=== PATIENT | male | born 1960 | race Caucasian/White ===

== ENCOUNTER 2016-10-30 16:03 | Emergency (ER) | payer MEDICAID ==
[~2016-10-30] VITALS: Ht 172.7 cm; Wt 76.0 kg
[2016-10-30] MEDS ORDERED: ASPIRIN 81 MG CHEWABLE TABLET PO ONE (17:00)
[2016-10-30] MEDS ORDERED: SODIUM CHLORIDE 0.9% 1,000 ML IV ONE (17:00)
[2016-10-30 17:08] LABS: EOSINOPHILS % (AUTO) 2.1 % (1.0-6.0); HEMATOCRIT 39.4 % (41-53); HEMOGLOBIN 12.8 g/dL (13.5-17.5); LYMPHOCYTES # (AUTO) 1.5 K/uL (1.0-4.8); LYMPHOCYTES % (AUTO) 19.2 % (22.0-44.0); MEAN CORPUSCULAR HEMOGLOBIN 32.4 pg (26.0-34.0); MEAN CORPUSCULAR HGB CONC 32.6 G/dL (31.0-37.0); MEAN CORPUSCULAR VOLUME 99 fL (80-100); MONOCYTES % (AUTO) 12.3 % (2.0-9.0); NEUTROPHILS # (AUTO) 5.3 K/uL (1.8-7.7); NEUTROPHILS % (AUTO) 65.4 % (40.0-70.0); PLATELET COUNT (AUTO) 213 K/uL (150-450); RED BLOOD CELL COUNT(AUTO) 3.96 MIL/uL (4.50-5.90); RED CELL DISTRIBUTION WIDTH 13.7 % (11.5-14.5); WHITE BLOOD COUNT (AUTO) 8.1 K/uL (4.5-11.0)
[2016-10-30 17:31] LABS: ALANINE AMINOTRANSFERASE 119 U/L (12-78); ALBUMIN 2.9 g/dL (3.4-5.0); ANION GAP 9 mmol/L (8-16); ASPARTATE AMINOTRANSFERASE 142 U/L (15-37); BILIRUBIN,TOTAL 0.3 mg/dL (0.1-1.0); CALCIUM, TOTAL 8.1 mg/dL (8.8-10.5); CARBON DIOXIDE 27 mmol/L (22-29); CHLORIDE 93 mmol/L (98-107); CREATININE 0.67 mg/dL (0.60-1.30); GLOMERULAR FILTR. RATE CALC > 60 mL/min (>60); SODIUM SERUM 129 mmol/L (136-145); TOTAL PROTEIN, SERUM 7.3 g/dL (6.4-8.2); UREA NITROGEN, BLOOD 13 mg/dL (7-18)
[2016-10-30] MEDS ORDERED: POTASSIUM CHLORIDE 20 MEQ ER TABLET PO ONE (17:45)
[2016-10-30 18:11] VITALS: BP 102/67
[2016-10-30] MEDS ORDERED: KETOROLAC TROMETHAMINE 30 MG/ML VIAL IVP ONE (21:15)
== END 2016-10-30 21:24 | disposition home or self-care (01) ==
LOC: EMS 16:08
DX: R07.89 Other chest pain (principal); I10 Essential (primary) hypertension; F17.210 Nicotine dependence, cigarettes, uncomplicated
CPT/HCPCS: 36415; 71010; 80053; 83690; 84484; 85025; 93005; 96361; 96374; 99285; J1885; J7030

== ENCOUNTER 2017-01-01 20:01 | Emergency (ER) | payer SELFPAY ==
[~2017-01-01] VITALS: Ht 167.6 cm; Wt 61.4 kg
[2017-01-01] MEDS ORDERED: LORazepam 2 MG TABLET PO ONE (21:15)
[2017-01-01] MEDS ORDERED: TRIAMCINOLONE 0.025% 15 GM CREAM TP ONE (21:15)
[2017-01-01 21:40] VITALS: BP 130/80
[2017-01-02] MEDS ORDERED: LIB25 PO (05:45)
[2017-01-02] MEDS ORDERED: HC1C1.5 TP (05:45)
== END 2017-01-01 23:26 | disposition home or self-care (01) ==
LOC: EMS 20:03
DX: L24.9 Irritant contact dermatitis, unspecified cause (principal); F10.20 Alcohol dependence, uncomplicated; J44.9 Chronic obstructive pulmonary disease, unspecified; I10 Essential (primary) hypertension; F17.210 Nicotine dependence, cigarettes, uncomplicated
CPT/HCPCS: 99283

== ENCOUNTER 2017-01-02 05:24 | Emergency (ER) | payer SELFPAY ==
[~2017-01-02] VITALS: Ht 167.6 cm; Wt 61.4 kg
[2017-01-02 05:33] VITALS: BP 132/78
[2017-01-02] MEDS ORDERED: HC1C1.5 TP (05:45)
[2017-01-02] MEDS ORDERED: LIB25 PO (05:45)
[2017-01-02] MEDS ORDERED: ChlordiazePOXIDE HCL 25 MG CAPSULE PO ONE (06:45)
== END 2017-01-02 07:09 | disposition home or self-care (01) ==
LOC: EMS 05:26
DX: Z76.0 Encounter for issue of repeat prescription (principal); F10.239 Alcohol dependence with withdrawal, unspecified; L30.9 Dermatitis, unspecified; I10 Essential (primary) hypertension; F17.210 Nicotine dependence, cigarettes, uncomplicated
CPT/HCPCS: 99283

== ENCOUNTER 2017-09-17 12:57 | Emergency (ER) | payer MEDICAID ==
[~2017-09-17] VITALS: Ht 175.3 cm; Wt 63.6 kg
[~2017-09-17 12:57] MED LIST: HC1C1.5 TP; LIB25 PO
[2017-09-17] MEDS ORDERED: ALBUTEROL SULFATE 2.5 MG/0.5 ML NEB SOLUTION NEB ONE ×2 (14:45→16:30)
[2017-09-17] MEDS ORDERED: IPRATROPIUM BROMIDE 0.5 MG/2.5 ML NEB SOLUTION NEB ONE ×2 (14:45→16:30)
[2017-09-17] MEDS ORDERED: GuaiFENesin/D-METHORPHAN [SUGAR-FREE] 200-20MG/10 ML SYRUP UDCUP PO ONE (16:30)
[2017-09-17 16:58] VITALS: BP 136/80
[2017-09-17] MEDS ORDERED: ALBUTEROL SULFATE HFA 90 MCG/PUFF 8 GM INHALER IH ONE (17:00)
== END 2017-09-17 17:27 | disposition home or self-care (01) ==
LOC: EMS 12:58
DX: J43.9 Emphysema, unspecified (principal); I10 Essential (primary) hypertension; F17.210 Nicotine dependence, cigarettes, uncomplicated; Z59.0 Homelessness
CPT/HCPCS: 71046; 94640; 99284; J7613; J3535